=== PATIENT | female | born 1960 | race African-American/Black ===

== ENCOUNTER 2021-02-08 12:47 | Emergency (ER) | payer OTHER ==
[~2021-02-08] VITALS: Ht 160 cm; Wt 96.3 kg
[2021-02-08] MEDS ORDERED: ASPIRIN CHEWABLE 81 MG TABLET. PO ONE (13:00)
--- NOTE | 2021-02-08 13:16 | RAD ---
EXAM: Chest, 2 views. HISTORY: Chest pain. COMPARISON: None. FINDINGS: 2 views of the chest are obtained. There is no infiltrate, pleural effusion or pneumothorax . The heart is normal in size. IMPRESSION: No acute pulmonary finding. Electronically signed by: Maren Nixon MD (02/08/2021 1:14 PM) [id number]
--- NOTE | 2021-02-08 13:22 | EKG ---
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
--- NOTE | 2021-02-08 13:29 | PHYS DOC ---
Past History Past Medical History: No Pertinent History Additional Past Surgical Histo: left shoulder, right knee Alcohol Use: None Adult General Chief Complaint Chief Complaint: CHEST PAIN HPI HPI Patient is a 60-year-old female presents emergency department with complaints of chest pressure. Patient states that she woke up at 4:00 this morning with a rapid heart rate which she states is not unusual for her to have. Patient states she is been awakening with rapid heart rate for most of her life, patient states she was worked up by a fish trapper back in the and was told her heart was okay and has has had no further follow-up since. Patient states that she has never had chest pressure with her rapid heart rate in the past, states that she became worried and came into the emergency department today for evaluation. Patient states that she did not take her heart rate but believes it was around 100 bpm. Patient states her rapid heart rate has resolved, but the chest pressure still remains. She currently rates her chest pressure at a 1/10, stating that at its worst it was a 2/10. Patient states her chest pressure is at the upper center part of her chest. Patient denies any abdominal pain, nausea, vomiting, diarrhea or constipation. Patient denies any diaphoretic episodes. Patient denies chest pain. Patient denies shortness of breath chest congestion or nasal congestion. Patient denies any head neck or throat pain. Patient denies any increased thirst or increased urination. Patient denies any recent travel. Patient denies anyone else living in her home with the same symptoms. Patient reports a past surgical history of a hysterectomy 10 years ago, left shoulder surgery 9 years ago, right knee surgery 8 years ago. Has no allergies to medications and takes no prescription medications at home. Review of Systems Review of Systems 14 body systems of review of systems have been reviewed. See HPI for pertinent positives and negative responses, otherwise all other systems are negative, nonpertinent or noncontributory. Current Medications Current Medications Current Medications Medications (Trade) Dose Ordered Sig/Yossi Start Time Stop Time Status Last Admin Dose Admin Aspirin (Aspirin Chewable) 324 mg 1X ONCE 02/08/21 13:00 02/08/21 13:14 DC Allergies Allergies Allergies Coded Allergies Type Severity Reaction Last Updated Verified No Known Drug Allergies 02/08/21 No Physical Exam Physical Exam Constitutional: Well developed, well nourished, no acute distress, non-toxic appearance. 60-year-old female in no apparent distress. HENT: Normocephalic, atraumatic, bilateral external ears normal, oropharynx moist, no oral exudates, nose normal. Oropharynx moist, pink, no deep tissue infectious process appreciated, no uvular swelling, no peritonsillar swelling, no laryngeal swelling or edema, no trismus, no drooling, no lymphadenopathy of t he head or neck appreciated. Eyes: PERRLA, EOMI, conjunctiva normal, no discharge. Neck: Normal range of motion, no tenderness, supple, no stridor. Cardiovascular:Heart rate regular rhythm, no murmur, heart sounds S1-S2 auscultation. Lungs & Thorax: Bilateral breath sounds clear to auscultation, all lung tavares, no adventitious lung sounds appreciated. No increased pain with palpation to the anterior thorax. Abdomen: Bowel sounds normal, soft, no tenderness, no masses, no pulsatile masses. Skin: Warm, dry, no erythema, no rash. Back: No tenderness, no CVA tenderness. Extremities: No tenderness, no cyanosis, no clubbing, ROM intact, no edema. Neurologic: Alert and oriented X 3, normal motor function, normal sensory function, no focal deficits noted. Psychologic: Affect normal, judgement normal, mood normal. Current Patient Data Vital Signs Vital Signs Date Time Temp Pulse Resp B/P (MAP) Pulse Ox O2 Delivery O2 Flow Rate FiO2 02/08/21 13:07 97.8 91 16 162/96 (118) 99 Room Air EKG EKG EKG performed at 1301 by ED log manager staff, shows heart rate of 91 bpm normal sinus rhythm without other ectopy, WI interval 0.174, QTc interval 0.435, no acute STEMI, no ACS, no acute ischemia appreciated, EKG interpreted by ED attend ing physician Dr. Donis. A second EKG was performed at 1339 by house respiratory therapy staff, shows a normal sinus rhythm with a heart rate of 80 bpm without ectopy, WI interval 0.190, QTc interval 0.435, no acute STEMI, no ACS, no acute ischemia appr eciated, EKG interpreted by ED attending physician Dr. Donis. Radiology/Procedures Radiology/Procedures PATIENT: MICHAEL WRAY ACCOUNT: [id number] : 1960 LOCATION: ER AGE: 60 SEX: F EXAM STATUS: REG ER ORD. PHYSICIAN: TURNER GALVAN APRN REASON: chest pain PROCEDURE: CHEST PA & LATERAL EXAM: Chest, 2 views. HISTORY: Chest pain. COMPARISON: None. FINDINGS: 2 views of the chest are obtained. There is no infiltrate, pleural effusion or pneumothorax. The heart is normal in size. IMPRESSION: No acute pulmonary finding. Electronically signed by: Maren Acuna MD (02/08/2021 1:14 PM) [id number] DICTATED AND SIGNED BY: MAREN ACUNA MD DATE: 02/08/211312 CC: TURNER GALVAN APRN; EMERGENCY,DEPARTMENT; CHAD ARELLANO MD ~MTH0 0 Heart Score C/O Chest Pain: Yes HEART Score for Chest Pain: HEART Score for Chest Pain Response (Comments) Value History Slighlty/Non-Suspicious 0 ECG Normal 0 Age >45 - < 65 1 Risk Factors 1 or 2 Risk Factors 1 Troponin < Normal Limit 0 Total 2 Risk Factors: Risk Factors: DM, Current or recent (<one month) smoker, HTN, HLP, family history of CAD, obesity. Risk Scores: Risk Factors: DM, Current or recent (<one month) smoker, HTN, HLP, family history of CAD, obesity. Course & Med Decision Making Course & Med Decision Making Pertinent Labs and Imaging studies reviewed. (See chart for details) 60-year-old female, vital signs reviewed, presents to the ER concerning of chest pressure that started at 4 AM. Physical examination concerning for possible cardiorespiratory versus upper GI discomfort. Will initiate a cardiorespiratory work-up in the ED, start 324 aspirin p.o., after period of time will give GI cocktail. Both patient's EKGs were nonconcerning for STEMI or other cardiac discrepancies. The patient's HEART score equals 0. Patient's chest x-ray was nonconcerning for acute cardiopulmonary processes interpreted by house radiology. Patient's lab work nonconcerning for infectious process or cardio respiratory process. Upon reevaluation of the patient, patient is now symptom-free. Patient states she does not believe the GI cocktail helped her, however she does report pain and symptom relief. Discussed with patient diagnosis of chest pain have unknown etiology. Discussed with patient need to follow-up with primary care and possibly cardiology related to her ongoing rapid heart rate symptoms that were evaluated 30 years ago. Discussed with patient strict precautions to return to the emergency department. Patient gave verbal understanding of discharge home instructions, return to ER precautions and concerns, follow-up with primary care this Friday for ongoing investigation of her rapid heart rate and intermittent chest discomfort. Patient states she feels fine now and is comfortable going home. Patient was discharged home without incident. Dragon Disclaimer Dragon Disclaimer This electronic medical record was generated, in whole or in part, using a voice recognition dictation system. Departure Departure: Impression: Primary Impression: Chest pain of unknown etiology Disposition: HOME / SELF CARE / HOMELESS Condition: GOOD Referrals: CHAD ARELLANO MD (PCP) Patient Instructions: Chest Pain (Nonspecific) Additional Instructions: You were seen today in the emergency department for chest pressure and discomfort. A extensive cardiorespiratory work-up was completed today. Your EKG was nonconcerning for any cardiac problems, your lab work did not show any indication of heart attack, or blood clots in your body or lungs. The x-ray of your chest did not show any concerning signs of heart disease or lung disease or pneumonias. We have discussed you following up with your primary care for ongoi ng investigation of your chest discomfort and rapid heart rate. Please follow- up with them soon for an appointment to get your hemoglobin A1c drawn and ongoing investigation. Please return to the emergency department for worsening symptoms or other concerns. EMERGENCY DEPARTMENT GENERAL DISCHARGE INSTRUCTIONS Thank you for coming to [facility] (ED) today and trusting us with you care. We trust that you had a positivie experience in our Emergency Department. If you wish to speak to the department management, you may call the director at [phone]. YOUR FOLLOW UP INSTRUCTIONS ARE FOLLOWS: 1. Do you have a private Doctor? If you do not have a private doctor, please ask for a resource list of physicians or clinics that may be able to assist you with follow up care. 2. The Emergency Physician has interpreted your x-rays. The X-Ray specialist will also review them. If there is a change in the findings, you will be notified in 48 hours when at all possible. 3. A lab test or culture has been done, your results will be reviewed and you will be notified if you need a change in treatment. ADDITIONAL INSTRUCTIONS AND INFORMATION: 1. Your care today has been supervised by a physician who is specially trained in emergency care. Many problems require more than one evaluation for a complete diagnosis and treatment. We recommend that you schedule your follow up appointment as recommended to ensure complete treatment of you illness or injury. If you are unable to obtain follow up care and continue to have a problem, or if your condition worsens, we recommend that you return to the ED. 2. We are not able to safely determine your condition over the phone nor are we able to give sound medical advice over the phone. For these safety reasons, if you call for medical advice we will ask you to come to the ED for further evaluation. 3. If you have any questions regarding these discharge instructions please call the ED at [phone]. SAFETY INFORMATION: In the interest of safety, wellness, and injury prevention; we encourage you to wear your sealbelt, if you smoke; quite smoking, and we encourage family to use a protective helmet for bicycling and other sporting events that present an increased risk for head injury. IF YOUR SYMPTOMS WORSEN OR NEW SYMPTOMS DEVELOP, OR YOU HAVE CONCERNS ABOUT YOUR CONDITION; OR IF YOUR CONDITION WORSENS WHILE YOU ARE WAITING FOR YOUR FOLLOW UP APPOINTMENT; EITHER CONTACT YOUR PRIMARY CARE DOCTOR, THE PHYSICIAN WHOSE NAME AND NUMBER YOU WERE GIVEN, OR RETURN TO THE ED IMMEDIATELY. TURNER GALVAN APRN Feb 08, 2021 13:29
[2021-02-08] MEDS ORDERED: LIDO:MAALOX 1:1 20 ML SINGLE DOSE. PO ONE (13:45)
[2021-02-08 13:47] LABS: BARBITURATES NEG (NEG); BENZODIAZEPINES NEG (NEG); CANNABINOIDS NEG (NEG); COCAINE NEG (NEG); METHADONE NEG (NEG); OPIATES NEG (NEG); PHENCYCLIDINE NEG (NEG)
[2021-02-08 13:49] LABS: AMPHETAMINE/METHAMPHETAMINE NEG (NEG)
[2021-02-08 13:51] LABS: BASO # 0.1 x10^3/uL (0.0-0.2); BASO % 1 % (0-3); EOS # 0.1 x10^3/uL (0.0-0.7); EOS % 2 % (0-3); HEMATOCRIT 37.7 % (36.0-47.0); HEMOGLOBIN 12.3 g/dL (12.0-15.5); LYMPH % 39 % (24-48); MEAN CORPUSCULAR HEMOGLOBIN 28 pg (25-35); MEAN CORPUSCULAR HGB CONC 33 g/dL (31-37); MEAN CORPUSCULAR VOLUME 85 fL (79-100); MONO # 0.5 x10^3/uL (0.0-1.1); MONO % 9 % (0-9); NEUT # 2.5 x10^3uL (1.8-7.7); NEUT % 48 % (31-73); PLATELET COUNT 299 x10^3/uL (140-400); RED BLOOD COUNT 4.42 x10^6/uL (3.50-5.40); RED CELL DISTRIBUTION WIDTH 12.8 % (11.5-14.5); WHITE BLOOD COUNT 5.2 x10^3/uL (4.0-11.0)
[2021-02-08 13:52] LABS: BILIRUBIN,URINE NEG (NEG); CLARITY,URINE CLEAR; COLOR,URINE YELLOW; GLUCOSE,URINE NEG (NEG); NITRITE,URINE NEG (NEG); UROBILINOGEN,URINE 0.2 mg/dL (0.2 mg/dL)
[2021-02-08 13:53] LABS: BACTERIA,URINE FEW /HPF (0-FEW); RBC,URINE RARE /HPF (0-2); SQUAMOUS EPITHELIAL CELL,UR MOD /LPF; WBC,URINE OCC /HPF (0-4)
[2021-02-08 14:04] LABS: ANION GAP 8 (6-14); BLOOD UREA NITROGEN 16 mg/dL (7-20); BUN/CREATININE RATIO 18 (6-20); CARBON DIOXIDE 27 mmol/L (21-32); CHLORIDE 103 mmol/L (98-107); CREATININE 0.9 mg/dL (0.6-1.0); GFR 77.5; GLUCOSE 143 mg/dL (70-99); POTASSIUM 3.9 mmol/L (3.5-5.1); SODIUM 138 mmol/L (136-145)
[2021-02-08 14:19] LABS: ALBUMIN 3.8 g/dL (3.4-5.0); ALBUMIN/GLOBULIN RATIO 0.9 (1.0-1.7); ALK PHOS 123 U/L (46-116); ALT (SGPT) 31 U/L (14-59); AST (SGOT) 16 U/L (15-37); LIPASE 136 U/L (73-393); MAGNESIUM 1.8 mg/dL (1.8-2.4); TOTAL BILIRUBIN 0.2 mg/dL (0.2-1.0); TOTAL PROTEIN 8.1 g/dL (6.4-8.2)
[2021-02-08 14:20] LABS: DIRECT BILIRUBIN < 0.1 mg/dL (0.0-0.2)
--- NOTE | 2021-02-08 15:08 | EKG ---
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
[2021-02-08 15:53] VITALS: BP 131/58
== END 2021-02-08 16:10 | disposition home or self-care (01) ==
LOC: ER 12:47
DX: R07.89 Other chest pain (principal)
CPT/HCPCS: 36415; 71046; 80053; 80076; 80307; 81001; 82553; 83690; 83735; 83880; 84484; 85025; 85379; 85610; 85730; 93005; 99285